=== PATIENT | female | born 1995 | race Hispanic/Latino ===

== ENCOUNTER 2021-08-31 16:03 | Day surgery (SDC) | payer MEDICAID ==
[2021-08-31 17:12] VITALS: BMI 27.3
[2021-08-31 17:47] LABS: #Eosinphils 0.1 10x3/uL (0.0-0.5); #Monocytes 0.9 10x3/uL (0.0-1.1); #Neutrophils 5.3 10x3/uL (1.5-8.4); %Basophils 0.4 % (0.0-2.0); %Eosinophils 0.6 % (0.0-6.0); %Lymphocytes 24.9 % (18.0-47.0); %Monocytes 10.5 % (0.0-10.0); %Neutrophils 62.3 % (40.0-75.0); Mean Corpuscular HGB CONC 32.7 g/dL (32.0-36.0); Mean Corpuscular Hemoglobin 31.2 pg (27.0-33.0); Mean Corpuscular Volume 95.2 fl (81.6-98.3); Mean Platelet Volume 9.6 fl (7.4-10.4); Platelet Count 240 10x3/uL (150-450); RBC Distribution Width 12.4 % (11.5-14.5); Red Blood Cell (RBC) Count 3.53 10x6/uL (3.90-5.03); White Blood Cell (WBC) Count 8.4 10x3/uL (3.5-10.5)
[2021-08-31 18:35] LABS: Bilirubin Neg (Negative); Blood, Urine Negative (Negative); Clarity Clear (Clear); Glucose, Urine (Dipstick) Normal (Negative); Ketone, Urine Negative (Negative); Leukocyte Negative (Negative); Nitrite Negative (Negative); Protein, Urine (Dipstick) Negative (Neg-Trace); Urobilinogen Normal mg/dL (Less than 2)
[2021-08-31 18:37] LABS: Urine Culture Reflex No No
[2021-08-31 18:51] LABS: Bacteria/HPF Rare-Few HPF (None Seen); RBC/HPF None Seen HPF (0-3); Renal Epithelial 0-3 HPF (None Seen); Squamous Epithelial 0-3 HPF (0-3); WBC/HPF 0-3 HPF (0-3)
== END 2021-08-31 19:25 | disposition home or self-care (01) ==
LOC: CSHLD/OP 16:03
PROVIDERS: ATTEND Obstetrics & Gynecology
DX: O36.8330 Maternal care for abnormalities of the fetal heart rate or rhythm, third trimester, not applicable or unspecified (principal); O22.13 Genital varices in pregnancy, third trimester; O22.03 Varicose veins of lower extremity in pregnancy, third trimester; Z3A.36 36 weeks gestation of pregnancy; Z90.49 Acquired absence of other specified parts of digestive tract; Z79.899 Other long term (current) drug therapy
CPT/HCPCS: 36415; 76819; 81001; 85025; 87081; 87480; 87510; 87660; 99283

== ENCOUNTER 2021-09-22 13:40 | Inpatient (IN) | payer MEDICAID, SELFPAY ==
[2021-09-22] MEDS ORDERED: hydrALAZINE 20 MG/ML VIAL SLOW IVP PRN (14:05)
[2021-09-22] MEDS ORDERED: Lidocaine 1% (PF) 30 ML VIAL SC PRN (14:11)
[2021-09-22] MEDS ORDERED: Ondansetron PF 4 MG/2 ML Vial IVP PRN (14:11)
[2021-09-22] MEDS ORDERED: Promethazine HCl 25 MG/ML VIAL IM PRN (14:11)
[2021-09-22] MEDS ORDERED: NS w/ Oxytocin 30 units 500 ML IV SCH (14:15)
[2021-09-22 14:24] VITALS: BMI 25.6
[2021-09-22 14:26] LABS: Hemoglobin 12.1 g/dL (12.0-15.5); Mean Corpuscular HGB CONC 33.7 g/dL (32.0-36.0); Mean Corpuscular Hemoglobin 31.3 pg (27.0-33.0); Mean Platelet Volume 9.6 fl (7.4-10.4); Platelet Count 257 10x3/uL (150-450); RBC Distribution Width 13.3 % (11.5-14.5); Red Blood Cell (RBC) Count 3.86 10x6/uL (3.90-5.03); White Blood Cell (WBC) Count 12.3 10x3/uL (3.5-10.5)
[2021-09-22 15:15] LABS: Hep B Surf Ag Non-Reactive S/CO (NonReactive)
[2021-09-22 15:16] LABS: Syphilis Antibody Nonreactive (Nonreactive); Syphilis Antibody Index 0.06 S/CO (<1.00 Non-Reactive)
[2021-09-22 15:50] LABS: HBSAg Index 0.18 S/CO (0-0.99)
[2021-09-22 16:26] LABS: SARS-CoV-2 NAA Rapid Test Not Detected (NotDetected)
[2021-09-22] MEDS ORDERED: Milk Of Magnesia 30 ML UDCUP PO PRN (17:48)
[2021-09-22] MEDS ORDERED: Bisacodyl 10 MG SUPP PR PRN (17:48)
[2021-09-22] MEDS: Ibuprofen 800 MG TAB PO SCH (21:04)
[2021-09-22] MEDS: Docusate Calcium (SURFAK) 240 MG CAP PO SCH (21:04)
[2021-09-23] MEDS: Ibuprofen 800 MG TAB PO SCH ×3 (05:46→21:20)
[2021-09-23] MEDS: Ferrous Sulfate 325 MG TAB PO SCH ×2 (07:52→17:33)
[2021-09-23] MEDS: Docusate Calcium (SURFAK) 240 MG CAP PO SCH ×2 (08:51→21:20)
[2021-09-23] MEDS ORDERED: Boostrix 0.5 ML (Tdap) VIAL IM ONE (17:48)
[2021-09-24] MEDS: Ibuprofen 800 MG TAB PO SCH ×2 (04:56→14:34)
[2021-09-24 07:44] VITALS: BP 107/69; TEMP 98.1
[2021-09-24] MEDS: Ferrous Sulfate 325 MG TAB PO SCH (10:01)
[2021-09-24] MEDS: Lactated Ringer's 1,000 ML IV SCH (10:01)
[2021-09-24] MEDS: Docusate Calcium (SURFAK) 240 MG CAP PO SCH (10:04)
== END 2021-09-24 16:00 | disposition home or self-care (01) | DRG 807 ==
LOC: CSHLD/OP 13:40 → CSHLD 17:43 → CSHPP 20:07
PROVIDERS: ADMIT Obstetrics & Gynecology; ATTEND Obstetrics & Gynecology
PROC: 10E0XZZ Delivery of Products of Conception, External Approach (ICD-10-PCS; principal; 2021-09-22)
PROC: 10907ZC Drainage of Amniotic Fluid, Therapeutic from Products of Conception, Via Natural or Artificial Opening (ICD-10-PCS; 2021-09-22)
DX: O80 Encounter for full-term uncomplicated delivery (principal); Z37.0 Single live birth; Z3A.39 39 weeks gestation of pregnancy; Z20.822 Contact with and (suspected) exposure to COVID-19
CPT/HCPCS: 85027; 86780; 86850; 86900; 86901; 87340; 99285; J2001; J2590; U0002